=== PATIENT | male | born 2000 | race Hispanic/Latino ===

== ENCOUNTER 2024-11-17 15:42 | Emergency (ER) | payer SELFPAY ==
[~2024-11-17] VITALS: Ht 160 cm; Wt 83.7 kg
[2024-11-17] MEDS ORDERED: IOPAMIDOL 370 MG/ML 100 ML INFUS..BTL INJ ONE (17:01)
[2024-11-17] MEDS: SODIUM CHLORIDE 0.9% 1000ML 1,000 ML IV ONE (17:23)
[2024-11-17] MEDS: ONDANSETRON HCL INJ 2MG/ML 2ML 2 MG/ML VIAL IV STA (17:23)
[2024-11-17 18:33] VITALS: PULSE 76; RESP 18; TEMP 98.4; O2SAT 100
[2024-11-17] MEDS ORDERED: ONDANSETRON ODT4 MG PO (18:42)
== END 2024-11-17 18:54 | disposition home or self-care (01) ==
LOC: FSED 16:20
DX: R10.30 Lower abdominal pain, unspecified (principal); R11.2 Nausea with vomiting, unspecified; R19.7 Diarrhea, unspecified; K76.0 Fatty (change of) liver, not elsewhere classified; G89.29 Other chronic pain
CPT/HCPCS: 74177; 80053; 81003; 99283; J2405; J7030; Q9967